=== PATIENT | male | born 1985 | race Caucasian/White ===

== ENCOUNTER 2019-03-31 09:39 | Emergency (ER) | payer SELFPAY ==
[2019-03-31] MEDS ORDERED: SODIUM CHLORIDE 0.9% 1000ML 1,000 ML IVS ONE (10:07)
[2019-03-31] MEDS ORDERED: KETOROLAC TROMETHAMINE INJ 30 MG/ML VIAL IV ONE (10:07)
--- NOTE | 2019-03-31 10:11 | ED.PDOC ---
History of Present Illness - General Chief Complaint: Blood Pressure Problem Stated Complaint: HTN with a headache Time Seen by Provider: 03/31/19 10:07 - History of Present Illness Initial Comments: Pt says that he has high blood pressure despite taking home bp meds , has anxiety and is very anxious , alos having headaches goig on for few weeks , went to urgent care started on meds Severity: moderate Improving Factors: nothing Worsening Factors: nothing Associated Symptoms: headaches Allergies/Adverse Reactions: Allergies NO KNOWN ALLERGY Allergy (Verified 03/31/19 09:57) Home Medications: Ambulatory Orders Amlodipine Besylate 10 mg PO DAILY 03/31/19 Clonazepam 0.5 mg PO TID #10 tab 03/31/19 Clonidine HCl 0.1 mg PO Q6H 03/31/19 Lisinopril 40 mg PO DAILY 03/31/19 Metoprolol Tartrate 25 mg PO BID #30 tab 03/31/19 Naproxen [Naprosyn] 500 mg PO BID #20 tab 03/31/19 Review of Systems - Review of Systems Constitutional: States: no symptoms reported EENTM: States: no symptoms reported Respiratory: States: no symptoms reported Cardiology: States: no symptoms reported Gastrointestinal/Abdominal: States: no symptoms reported Genitourinary: States: no symptoms reported Musculoskeletal: States: no symptoms reported Skin: States: no symptoms reported Neurological: States: anxiety, depressed, headache Endocrine: States: no symptoms reported Hematologic/Lymphatic: States: no symptoms reported Past Medical History (General) - Patient Medical History Hx Stroke: No Hx of COPD: No Hx Congestive Heart Failure: No Hx Hypertension: Yes Hx Diabetes: No Hx Cancer: No Surgical History: other - Vaccination History Hx Tetanus, Diphtheria Vaccination: No Hx Influenza Vaccination: No Hx Pneumococcal Vaccination: No - Social History Hx Tobacco Use: Yes Hx Chewing Tobacco Use: Yes Hx Alcohol Use: Yes - Occasional Hx Substance Use: No Hx Substance Use Treatment: No Hx Depression: No - Female History Patient is a Female of Child Bearing Age (10 -59 yrs old): No Patient : No Family Medical History - Family History Father Family History: No Known Living Status: Still Living Physical Exam - Physical Exam General Appearance: Anxious Eye Exam: bilateral normal Ears, Nose, Throat: hearing grossly normal, normal ENT inspection Neck: non-tender, full range of motion, supple, normal inspection Respiratory: chest non-tender, lungs clear, normal breath sounds, no respiratory distress, no accessory muscle use Cardiovascular/Chest: no edema, no gallop, no JVD, tachycardia Gastrointestinal/Abdominal: non tender, soft Extremity: normal range of motion, non-tender, normal inspection, no pedal edema Neurologic: no motor/sensory deficits, alert, normal mood/affect, oriented x 3 Skin Exam: normal color Lymphatic: no adenopathy Progress - Results/Orders Results/Orders: 03/31/19 10:15 EKG STAT Laboratory Results WBC 10.7 K/mm3 (4.8-10.8) 03/31/19 10:51 RBC 5.84 M/mm3 (4.70-6.10) 03/31/19 10:51 Hgb 15.9 gm/dL (14.0-18.0) 03/31/19 10:51 Hct 46.8 % (42.0-52.0) 03/31/19 10:51 MCV 80.1 fl (80.0-94.0) 03/31/19 10:51 MCH 27.1 pg (27.0-31.0) 03/31/19 10:51 MCHC 33.9 g/dL (33.0-37.0) 03/31/19 10:51 RDW 13.5 % (11.5-14.5) 03/31/19 10:51 Plt Count 417 K/mm3 (130-400) H 03/31/19 10:51 MPV 8.2 fl (7.40-10.4) 03/31/19 10:51 Absolute Neuts (auto) 8.20 K/uL (1.8-6.8) H 03/31/19 10:51 Absolute Lymphs (auto) 1.80 K/uL (1.0-3.4) 03/31/19 10:51 Absolute Monos (auto) 0.50 K/uL (0.2-0.8) 03/31/19 10:51 Absolute Eos (auto) 0.00 K/uL (0.0-0.4) 03/31/19 10:51 Absolute Basos (auto) 0.10 K/uL (0.0-0.1) 03/31/19 10:51 Neutrophils % 76.8 % (42.0-78.0) 03/31/19 10:51 Lymphocytes % 17.0 % (20.0-50.0) L 03/31/19 10:51 Monocytes % 4.5 % (2.0-9.0) 03/31/19 10:51 Eosinophils % 0.4 % (1.0-5.0) L 03/31/19 10:51 Basophils % 1.3 % (0.0-2.0) 03/31/19 10:51 Sodium 138 mmol/L (135-145) 03/31/19 10:07 Potassium 4.0 mmol/L (3.6-5.0) 03/31/19 10:07 Chloride 101 mmol/L (101-111) 03/31/19 10:07 Carbon Dioxide 24 mmol/L (21-31) 03/31/19 10:07 Anion Gap 17.0 (12-18) 03/31/19 10:07 BUN 11 mg/dL (7-18) 03/31/19 10:07 Creatinine 0.89 mg/dL (0.6-1.3) 03/31/19 10:07 BUN/Creatinine Ratio 12.4 (10-20) 03/31/19 10:07 Random Glucose 127 mg/dL (70-105) H 03/31/19 10:07 Serum Osmolality 276.7 mOsm/L (275-295) 03/31/19 10:07 Calcium 9.4 mg/dL (8.4-10.2) 03/31/19 10:07 Total Bilirubin 0.9 mg/dL (0.2-1.0) 03/31/19 10:07 AST 20 IU/L (10-42) 03/31/19 10:07 ALT 32 IU/L (10-60) 03/31/19 10:07 Alkaline Phosphatase 86 IU/L (42-121) 03/31/19 10:07 Serum Total Protein 8.2 gm/dL (6.4-8.2) 03/31/19 10:07 Albumin 4.1 g/dl (3.2-5.5) 03/31/19 10:07 Globulin 4.1 gm/dL (2.3-3.5) H 03/31/19 10:07 Albumin/Globulin Ratio 1.0 (1.1-1.9) L 03/31/19 10:07 Departure - Departure Clinical Impression: Hypertension, Headache, Anxiety Time of Disposition: 13:08 Disposition: Discharge to Home or Self Care Condition: Good Departure Forms: ED Discharge - Pt. Copy, Patient Portal Self Enrollment Instructions: DI for High Blood Pressure Diet: resume usual diet Activity: increase activity as tolerated, walking as tolerated Referrals: Marcelo Irene MD [Primary Care Provider] - 1-2 Weeks Prescriptions: Clonazepam 0.5 mg PO TID #10 tab Metoprolol Tartrate 25 mg PO BID #30 tab Naproxen [Naprosyn] 500 mg PO BID #20 tab Home Medications: Ambulatory Orders Amlodipine Besylate 10 mg PO DAILY 03/31/19 Clonazepam 0.5 mg PO TID #10 tab 03/31/19 Clonidine HCl 0.1 mg PO Q6H 03/31/19 Lisinopril 40 mg PO DAILY 03/31/19 Metoprolol Tartrate 25 mg PO BID #30 tab 03/31/19 Naproxen [Naprosyn] 500 mg PO BID #20 tab 03/31/19 Comments: Follow up PCP in 1-2 days
--- NOTE | 2019-03-31 13:05 | CT ---
EXAM DESCRIPTION: CT Head without contrast CLINICAL HISTORY: 34 years Male headaches COMPARISON: None TECHNIQUE: Noncontrast axial scans of the brain were obtained. Sagittal and coronal reformatted images were performed. This exam was performed according to our departmental dose-optimization program, which includes automated exposure control, adjustment of the mA and/or kV according to patient size and/or use of iterative reconstruction technique. FINDINGS: There is no evidence of acute intracranial hemorrhage, extracerebral fluid collection, hydrocephalus, midline shift, obvious mass effect, or major territorial infarction. The ventricles are relatively small. Cortical sulci are unremarkable except for minimal prominence in the upper convexity and at the periphery of the left sylvian fissure. Shepard-white distinction is preserved. The bony calvarium appears intact. The left frontal sinus and the left ethmoid air cells and right mastoid air cells are mostly opacified. There is partial opacification and mucosal thickening in the right frontal and ethmoid sinuses, bilateral sphenoid sinuses, and the maxillary antra, the latter only minimally visualized. IMPRESSION: No evidence of acute intracranial hemorrhage. No significant findings identified in the brain. Pansinusitis, primarily involving the left frontal and ethmoid sinuses, as well as right mastoiditis. Electronically signed by: Manuel Cruz MD 03/31/2019 1:04 PM [employer]
[2019-03-31] MEDS ORDERED: cefTRIAXone SODIUM 1 GM VIAL IM ONE (13:18)
[2019-03-31 13:28] VITALS: BP 135/102; TEMP 98.7; O2SAT 98
== END 2019-03-31 13:51 | disposition home or self-care (01) ==
LOC: ER 09:39
DX: I10 Essential (primary) hypertension (principal); R51 Headache; F41.9 Anxiety disorder, unspecified; H70.90 Unspecified mastoiditis, unspecified ear; J32.9 Chronic sinusitis, unspecified; Z79.899 Other long term (current) drug therapy; Z87.891 Personal history of nicotine dependence
CPT/HCPCS: 36415; 70450; 80048; 80053; 85025; 93005; J0696; J1885; J2060; J7030